=== PATIENT | male | born 1955 | race Caucasian/White ===

== ENCOUNTER → 2020-01-01 09:16 | Outpatient (CLI) | payer OTHER, MEDICARE, SELFPAY ==
--- NOTE | 2020-01-01 09:20 | DI.RAD.S_ITS ---
PROCEDURE: XR FOOT RT MIN 3V INDICATIONS: right foot pain TECHNIQUE: 3 views of the foot were acquired. COMPARISON: None. FINDINGS: Bones: No fractures or dislocations. No suspicious bony lesions. 1st MTP degenerative change. Ossification is lateral to the calcaneocuboid joint likely represent sequelae of remote trauma. Soft tissues: No tibiotalar joint effusion. Achilles tendon appears normal. IMPRESSION: 1st MTP degenerative change. No evidence acute bony abnormality of the right foot If clinical suspicion and/or symptoms persist, further assessment with repeat plain films, or advanced imaging (e.g., CT, MRI, or bone scan) may be helpful for further assessment. Dictated by: Clifford Guzman M.D. on 01/01/2020 at 9:41 Approved by: Clifford Guzman M.D. on 01/01/2020 at 9:42
== END ==
PROVIDERS: Family Provider Family Medicine; Referring Provider Physician Assistant; Visit Provider Physician Assistant
DX: M79.671 Pain in right foot (principal)
CPT/HCPCS: 73630

== ENCOUNTER → 2020-06-27 10:40 | Outpatient (CLI) | payer OTHER, SELFPAY ==
[2020-06-27 12:38] LABS: COVID19 -Nasal RAPID Negative (Negative)
== END ==
PROVIDERS: Family Provider Family Medicine; Visit Provider Surgery
DX: Z20.822 Contact with and (suspected) exposure to COVID-19 (principal)
CPT/HCPCS: 87635; C9803

== ENCOUNTER 2020-06-28 08:08 | Day surgery (SDC) | payer OTHER, SELFPAY ==
[2020-06-28] VITALS (11 sets, daily range): BP systolic 97–147; BP diastolic 47–78; PULSE 63–84; RESP 14–20; TEMP 35.8–36.4; O2SAT 91–97; BMI 31.1
[2020-06-28] MEDS: SODIUM CHLORIDE 0.9% 1,000 ML 200 ML IV (08:41)
--- NOTE | 2020-06-28 09:14 | PM.HP.1 ---
History of Present Illness History of Present Illness Date Patient Seen: 06/28/20 Time Patient Seen: 09:14 Chief complaint: SDC Narrative: This is a 64-year-old man who had a colonoscopy in [address] José, and 1 polyp was found. He denies any new symptoms since then, of any melena, hematochezia involving right mid weight loss. No other personal or family history of colon polyps or colon cancers. This is the is otherwise well, has no new medical problems. ROS: Thirteen system review is otherwise negative other than as mentioned below and in HPI. PE GENERAL: Well groomed and cooperative. Appears stated age. Answers questions promptly and appropriately. Vital signs noted. HENT: Normocephalic, atraumatic. Hearing intact. EYES: Conjunctiva pink, sclera white, no periorbital swelling. CARDIOVASCULAR: Regular rate. No pedal edema. RESPIRATORY: Non-tachypneic, breathing comfortably on room air. GASTROINTESTINAL: Abdomen soft and non-distended GENITALURINARY: No flank tenderness. MUSCULOSKELETAL: Equal tone and mass bilaterally. SKIN: Warm, dry, soft, appropriate color for ethnicity. No other lesions, rashes, or wounds. NEURO: Alert and Oriented X 3. No gross sensory deficits, or cognitive issues. PSYCH: Appropriate affect and mood. Patient History Family & Social History Social History: household members spouse Tobacco & Substance use: Smoking Status Never smoker alcohol intake never Substance Use Type does not use Meds Home Medications and Allergies Home Medications Medication Instructions Recorded Confirmed Type No Known Home Medications 01/01/20 06/28/20 History Allergies Allergy/AdvReac Type Severity Reaction Status Date / Time latex Allergy Mild RASH Verified 06/28/20 08:28 hydrocodone Allergy Unknown Verified 06/28/20 08:28 Exam Vital Signs (past 8 hours): - 06/28/20 08:34 Temperature 97.5 F L Pulse Rate 81 Respiratory Rate 16 Blood Pressure 147/78 H Pulse Oximetry 96 Oxygen Delivery Method Room Air Assessment & Plan Assessment and plan (1) Personal history of colonic polyps: Status: Acute Assessment & Plan narrative: Risks and benefits of surveillance colonoscopy and possible polypectomy were discussed with the patient including risk of bleeding, perforation, need for additional procedures, risks of anesthesia. The patient desires to proceed with the colonoscopy procedure. COVID-19 COVID-19 status: Negative Result date/Date tested (Pos, Neg/Pending): 06/27/20 Time Spent With Patient Time with patient: 15-24 minutes Quality VTE Deep Vein Thrombosis/Pulmonary Embolism Present on Admission: No
--- NOTE | 2020-06-28 09:20 | PM.OP.ENDO ---
Operative Date/Time/Diagnoses Date of procedure: 06/28/20 Time of procedure: 09:20 Pre-op diagnosis: Personal history of colon polyps, due for surveillance colonoscopy Procedure & Clinicians Study performed: Colonoscopy Procedural sedation performed by the endoscopist Same procedure as scheduled: Yes Indications: Personal history of colon polyps, due for surveillance colonoscopy Surgeon: Cherrie Melendez Procedure Notes SCOAP/Timeout: Performed Procedure in detail: The patient was brought to the room and placed in left lateral decubitus position with all bony prominences padded. A time-out was performed and then the patient was given procedural sedation starting with 4 mg of Versed and 100 mcg of fentanyl. A total of 10 mg of Versed and 250 micro g of fentanyl were given for the time procedure. Vitals were monitored throughout the procedure and remained stable. Once adequately sedated, the procedure was begun. A rectal exam was performed revealing no abnormalities. The colonoscope was then introduced to the rectum and advanced to the cecum in the usual fashion. The colon was quite tortuous. Required several maneuvers to reach the cecum safely including pressure on the anterior abdominal wall, and using the scope stiffener. The cecum was identified by the appendiceal orifice, the mucosal tri-fold, and the ileocecal valve. The scope was then retracted while rotating side to side and examining each mucosal fold. Low-grade diverticulosis seen in the sigmoid colon. Otherwise no polyps were found and the colon appeared essentially normal. At the conclusion of the procedure retroflexion was performed and small grade 1-2 internal hemorrhoids without stigmata of bleeding were seen. The scope was then withdrawn from the rectum the procedure was concluded. The patient tolerated the procedure well and was transferred to the PACU in stable condition. Scope withdrawal time: 8 Sedation minutes: 18 Findings: diverticulosis Specimen(s): none sent Complications: none Post-procedure Recommendations: Colonscopy in 10 years Follow up: as needed Disposition: PACU
[2020-06-28] MEDS: MIDAZOLAM 5 MG/5 ML VIAL IV (09:40)
[2020-06-28] MEDS: fentaNYL 250 MCG/5 ML INJ IV (09:40)
[2020-06-28] MEDS: ONDANSETRON 4 MG/2 ML INJ IV (10:30)
--- NOTE | 2020-06-28 11:16 | SUR.PHASEII ---
Addendum entered by Loreto Morrow R.N. 06/28/20 13:09: pt stated his nausea was improved and he was more awake. Stated he was ready to go home. Able to get dressed with SBA. queezease provided to pt and nausea bag. to car in w/c with RN escort in stable condition. d/c instructions provided to pt. Original Note: pt arrived from phase I and was sleepy. Attempted to sit up and pt stated he was nauseated. Verbal order for 4mg of zofran obtained and given to pt. VS checked and stable. 2nd bag of IVF hung. allowed to sleep for about 30 min, pt appears more alert however still is sleepy. encouraged juice to drink, pt declined crackers/brandon rene. VS continue to be stable. will continue to monitor.
== END 2020-06-28 12:10 | disposition home or self-care (01) ==
PROVIDERS: Family Provider Family Medicine; Referring Provider Surgery; Visit Provider Surgery
PROC: 0DJD8ZZ Inspection of Lower Intestinal Tract, Via Natural or Artificial Opening Endoscopic (ICD-10-PCS; CPT 45378; principal; 2020-06-28 09:30)
DX: Z12.11 Encounter for screening for malignant neoplasm of colon (principal); Z86.010 Personal history of colon polyps; K57.30 Diverticulosis of large intestine without perforation or abscess without bleeding; K64.0 First degree hemorrhoids
CPT/HCPCS: 45378; 99152; J2250; J2405; J3010

== ENCOUNTER 2020-08-15 11:15 | Emergency (ER) | payer OTHER, SELFPAY ==
[2020-08-15 11:23] VITALS: BP 161/72; PULSE 75; RESP 16; RESP 18; TEMP 37.3; O2SAT 98; BMI 30.6
[2020-08-15 11:30] VITALS: BP 132/64; PULSE 64; RESP 11; O2SAT 97
--- NOTE | 2020-08-15 11:37 | DI.RAD.S_ITS ---
PROCEDURE: XR CHEST 1V INDICATIONS: chest pain TECHNIQUE: One view of the chest was acquired. COMPARISON: None. FINDINGS: Surgical changes and devices: None. Lungs and pleura: Lungs are clear. No pleural effusions or pneumothorax. Mediastinum: Mediastinal contours appear normal. Heart size is normal. Bones and chest wall: No suspicious bony lesions. Overlying soft tissues appear unremarkable. IMPRESSION: No acute disease. Dictated by: Asif Carolina M.D. on 08/15/2020 at 12:06 Approved by: Asif Carolina M.D. on 08/15/2020 at 12:11
--- NOTE | 2020-08-15 11:43 | ED_ITS ---
HPI - Chest Pain General Chief Complaint: Chest Pain Stated Complaint: chest pain over weekend, currently not present Time Seen by Provider: 08/15/20 11:25 Source: patient Mode of arrival: Ambulatory Limitations: no limitations History of Present Illness HPI narrative: Otherwise healthy 64-year-old gentleman on no medications with no prior history of chest pain or cardiac issues presents with 4 days of intermittent chest pain. It started on Saturday with some tightness in his central chest as he was at [employer] picking up some bricks. He had another episode on Saturday morning again central tightness pain radiating up to both shoulders as he was moving those bricks around a little bit. Saturday there was another episode was not associated with significant heavy lifting and was described as central chest tightness. Saturday 2 similar episodes and again a brief episode of tightness this morning. All episodes resolved spontaneously and he has been taking ibuprofen with each of these to help alleviate pain. He describes no dyspnea or diaphoresis. No abdominal pain dysuria, vomiting, diarrhea. He has had no recent fevers. Related Data Home Medications Medication Instructions Recorded Confirmed No Known Home Medications 01/01/20 08/15/20 Allergies Allergy/AdvReac Type Severity Reaction Status Date / Time latex Allergy Mild RASH Verified 06/28/20 08:28 hydrocodone Allergy Unknown Verified 06/28/20 08:28 Review of Systems Review of Systems Narrative: Remainder of complete review of systems is otherwise unremarkable except for that included in the HPI. Patient History Medical History Personal history of colonic polyps Social History household members: spouse Smoking Status: Never smoker alcohol intake: never Smoking Status: Never smoker Substance Use Type: does not use Exam Narrative Exam Narrative: General: Healthy appearing, in no acute distress. Able to give a complete and coherent history. Well-nourished well-developed HEENT: Moist mucous membranes, normal sclera with reactive pupils, Neck: No JVD, supple Respiratory: Lungs are clear to auscultation, no wheezing no rales no rhonchi. Full and symmetrical air movement Cardiac: Regular rate and rhythm, 3/6 systolic ejection murmur without bruit Abdomen: Soft, nontender, good bowel tones, no flank pain Skin: Warm and dry, no rashes Neurologic: Grossly neurologically intact with no obvious asymmetries or abnormalities Extremities: No trauma, well perfused Psych: Cooperative, appropriate insight and affect Initial Vital Signs Initial Vital Signs: Vital Signs Temperature 99.1 F 08/15/20 11:23 Pulse Rate 75 08/15/20 11:23 Respiratory Rate 18 08/15/20 11:23 Blood Pressure 161/72 H 08/15/20 11:23 Pulse Oximetry 98 08/15/20 11:23 Course Orders Ordered: ED Orders 08/15/20 11:18 EKG-12 Lead Routine 08/15/20 11:34 Complete Blood Count AUTO DIFF Stat Comprehensive Metabolic Panel Stat Lipase Stat Partial Thromboplastin Time Stat Prothrombin Time INR Stat Troponin & CK Cardiac Panel Stat 08/15/20 11:37 XR chest 1V Stat 08/15/20 12:36 COVID19 -Nasal swab/Pre-Proc Stat 08/15/20 12:54 EKG-12 Lead Stat Discontinued Medications Aspirin (Aspirin 81 Mg Chew Tab) 324 mg PO NOW ONE Stop: 08/15/20 11:47 Last Admin: 08/15/20 11:51 Dose: 324 mg Documented by: DEANAONER Heparin Sodium (Porcine) (Heparin 5,000 Unit/Ml Vial) 5,000 unit IV NOW ONE Stop: 08/15/20 12:36 Last Admin: 08/15/20 12:44 Dose: 5,000 unit Documented by: BTONER Heparin Sodium/Dextrose (Heparin Drip) 25,000 unit in 500 mls @ 20 mls/hr IV CONT NAMAN; Protocol Last Admin: 08/15/20 12:45 Dose: 1,000 units/hr, 20 mls/hr Documented by: BTONER Vital Signs Vital signs: Vital Signs - 8 hr 08/15/20 11:23 08/15/20 11:30 08/15/20 12:00 Temperature 99.1 F Pulse Rate 75 64 61 Respiratory Rate 16 11 L 11 L Blood Pressure 161/72 H 132/64 144/64 H Pulse Oximetry 98 97 96 08/15/20 12:30 08/15/20 13:00 Temperature Pulse Rate 62 73 Respiratory Rate 14 15 Blood Pressure 129/61 148/71 H Pulse Oximetry 96 98 MDM - Chest Pain Medical Records Data Attestation: I reviewed the patient's medical records. Lab Data Attestation: I reviewed the patient's lab results. Result diagrams: 08/15/20 11:34 08/15/20 11:34 Labs: Lab Results 08/15/20 08/15/20 08/15/20 Range/Units 11:34 11:34 11:34 WBC 8.6 (4.5-11.0) X10^3/uL RBC 4.72 (4.5-5.9) X10^6/uL Hgb 14.5 (13.5-17.5) g/dL Hct 42.9 (41-53) % MCV 90.9 (80-100) fL MCH 30.7 (26-34) PG MCHC 33.8 (30-36) % RDW 13.6 (11.6-14.8) % Plt Count 232 (150-400) X10^3/uL Neut % (Auto) 67.3 (50-75) % Lymph % (Auto) 18.8 L (25-40) % [place] % (Auto) 10.7 (3-14) % Eos % (Auto) 2.1 (2-4) % Baso % (Auto) 1.1 (0-2) % Neut # (Auto) 5800 (4804-3879) /uL Lymph # (Auto) 1600 (7667-4443) /uL [place] # (Auto) 900 (0-900) /uL Eos # (Auto) 200 (0-450) /uL Baso # (Auto) 100 (0-100) /uL PT 13.5 H (10.1-12.7) SECONDS INR 1.2 (0.9-1.3) APTT 35 (26.4-36.2) SECONDS Sodium 138 (137-145) mmol/L Potassium 4.1 (3.4-5.1) mmol/L Chloride 108 H (98-107) mmol/L Carbon Dioxide 24 (22-32) mmol/L BUN 17 (9-20) mg/dL Creatinine 0.85 (0.66-1.25) mg/dL Estimated GFR > 60.0 (>60) mL/min BUN/Creatinine Ratio 20.0 (6-22) Glucose 114 H (80-110) mg/dL Calcium 9.4 (8.4-10.2) mg/dL Total Bilirubin 0.3 (0.2-1.3) mg/dL AST 65 H (17-59) IU/L ALT 34 (<50) IU/L Alkaline Phosphatase 91 (38-126) U/L Total Creatine Kinase 422 H (55-170) U/L CK-MB (CK-2) 11.60 H (<2.37) ng/mL CK-MB (CK-2) Rel Index 2.7 (1.5-5.0) % Troponin I 3.230 H* (0.01-0.034) ng/mL Total Protein 7.5 (6.3-8.2) g/dL Albumin 4.3 (3.5-5.0) g/dL Globulin 3.2 (1.7-4.1) g/dL Albumin/Globulin Ratio 1.3 (1.0-2.8) Lipase 62 (23-300) U/L SARS-CoV-2 (PCR) (Negative) 08/15/20 Range/Units 12:36 WBC (4.5-11.0) X10^3/uL RBC (4.5-5.9) X10^6/uL Hgb (13.5-17.5) g/dL Hct (41-53) % MCV (80-100) fL MCH (26-34) PG MCHC (30-36) % RDW (11.6-14.8) % Plt Count (150-400) X10^3/uL Neut % (Auto) (50-75) % Lymph % (Auto) (25-40) % [place] % (Auto) (3-14) % Eos % (Auto) (2-4) % Baso % (Auto) (0-2) % Neut # (Auto) (5361-2478) /uL Lymph # (Auto) (8035-4637) /uL [place] # (Auto) (0-900) /uL Eos # (Auto) (0-450) /uL Baso # (Auto) (0-100) /uL PT (10.1-12.7) SECONDS INR (0.9-1.3) APTT (26.4-36.2) SECONDS Sodium (137-145) mmol/L Potassium (3.4-5.1) mmol/L Chloride (98-107) mmol/L Carbon Dioxide (22-32) mmol/L BUN (9-20) mg/dL Creatinine (0.66-1.25) mg/dL Estimated GFR (>60) mL/min BUN/Creatinine Ratio (6-22) Glucose (80-110) mg/dL Calcium (8.4-10.2) mg/dL Total Bilirubin (0.2-1.3) mg/dL AST (17-59) IU/L ALT (<50) IU/L Alkaline Phosphatase (38-126) U/L Total Creatine Kinase (55-170) U/L CK-MB (CK-2) (<2.37) ng/mL CK-MB (CK-2) Rel Index (1.5-5.0) % Troponin I (0.01-0.034) ng/mL Total Protein (6.3-8.2) g/dL Albumin (3.5-5.0) g/dL Globulin (1.7-4.1) g/dL Albumin/Globulin Ratio (1.0-2.8) Lipase (23-300) U/L SARS-CoV-2 (PCR) Negative (Negative) Imaging Data Chest x-ray: Radiologist's Impression: FINDINGS: Surgical changes and devices: None. Lungs and pleura: Lungs are clear. No pleural effusions or pneumothorax. Mediastinum: Mediastinal contours appear normal. Heart size is normal. Bones and chest wall: No suspicious bony lesions. Overlying soft tissues appear unremarkable. IMPRESSION: No acute disease. Dictated by: Asif Carolina M.D. on 08/15/2020 at 12:06 ECG Data Attestation: I personally reviewed and interpreted this ECG as follows: Interpretation: Sinus rhythm at a rate of 65 T-wave abnormality anteriorly. Slight ST elevation in V2, not contiguous, not meeting STEMI criteria repeat 1252 Sinus rhythm at a rate of 62 Continue all anterior T-wave changes without significant progression from initial EKG MDM Narrative Medical decision making narrative: 64-year-old gentleman on no medications with no significant medical history presents with 4 days of intermittent chest pain ST T wave abnormalities on EKG not meeting full criteria for STEMI with positive troponin at 3.23. Chest x-ray is unremarkable. Patient has been pain-free since arrival in the emergency department. He did receive aspirin and is started on a heparin drip. 1230 care is reviewed with Dr. Melody, coal trimmer machine operator. He agrees with starting heparin transfer to [facility] and will contact partners had at [facility] to arrange for coronary catheterization. 1pm Dr Quiñones, coal trimmer machine operator, would like patient to come directly over and go to the medical laboratory technical officer prior to up to the ICU. Care is also reviewed with the hospitalist, Dr. Rendon. Urgent ALS transfer is initiated Patient is stable at time of transfer Critical Care Time Critical Care Time Critical Care Time: Yes Total Critical Care Time: 32 Attestation: Critical care time is separate from other billable procedures. This critical care time includes consultation with family and other consulting doctors, review of records, and interpretation of data from labs, EKGs and imaging as well as managements of acute myocardial infarction Discharge Plan Departure Patient Disposition: er [facility] Clinical Impression: Acute non-ST elevation myocardial infarction (NSTEMI) Prescriptions: No Action No Known Home Medications RF: 0
[2020-08-15 11:45] LABS: Add Manual Diff / Slide Review NO; Basophils Absolute Auto 100 /uL (0-100); Basophils Percent Auto 1.1 % (0-2); Eosinophils Absolute Auto 200 /uL (0-450); Eosinophils Percent Auto 2.1 % (2-4); Hematocrit 42.9 % (41-53); Hemoglobin 14.5 g/dL (13.5-17.5); Lymphocytes Absolute Auto 1600 /uL (1100-4500); Lymphocytes Percent Auto 18.8 % (25-40); Mean Corpuscular HGB Conc 33.8 % (30-36); Mean Corpuscular Hemoglobin 30.7 PG (26-34); Mean Corpuscular Volume 90.9 fL (80-100); Monocytes Absolute Auto 900 /uL (0-900); Monocytes Percent Auto 10.7 % (3-14); Neutrophils Absolute Auto 5800 /uL (1500-7000); Neutrophils Percent Auto 67.3 % (50-75); Platelet Count 232 X10^3/uL (150-400); Red Blood Cell Count 4.72 X10^6/uL (4.5-5.9); Red Cell Distribution Width 13.6 % (11.6-14.8); White Blood Cell Count 8.6 X10^3/uL (4.5-11.0)
[2020-08-15 11:47] LABS: INR 1.2 (0.9-1.3); Prothrombin Time 13.5 SECONDS (10.1-12.7)
[2020-08-15 11:50] LABS: Alanine Aminotransferase 34 IU/L (<50); Albumin 4.3 g/dL (3.5-5.0); Albumin Globulin Ratio 1.3 (1.0-2.8); Alkaline Phosphatase 91 U/L (38-126); Aspartate Aminotransferase 65 IU/L (17-59); Bilirubin Total 0.3 mg/dL (0.2-1.3); Blood Urea Nitrogen 17 mg/dL (9-20); Calcium 9.4 mg/dL (8.4-10.2); Carbon Dioxide 24 mmol/L (22-32); Chloride 108 mmol/L (98-107); Creatine Kinase 422 U/L (55-170); Estimated Glomerular Filt Rate > 60.0 mL/min (>60); Globulin 3.2 g/dL (1.7-4.1); Glucose 114 mg/dL (80-110); HEMOLYSIS < 15 (0-50); Lipase 62 U/L (23-300); PTT Partial Thromboplastin Tim 35 SECONDS (26.4-36.2); Potassium 4.1 mmol/L (3.4-5.1); Sodium 138 mmol/L (137-145); Total Protein 7.5 g/dL (6.3-8.2)
[2020-08-15] MEDS: ASPIRIN 81 MG CHEW TAB 324 MG PO (11:51)
[2020-08-15 12:00] VITALS: BP 144/64; PULSE 61; RESP 11; O2SAT 96
[2020-08-15 12:07] LABS: CKMB % Relative Index 2.7 % (1.5-5.0)
[2020-08-15 12:30] VITALS: BP 129/61; PULSE 62; RESP 14; O2SAT 96
[2020-08-15] MEDS: HEPARIN 5,000 UNIT/ML VIAL 5000 UNIT IV (12:44)
[2020-08-15] MEDS: HEPARIN DRIP 25,000 UNIT/500 ML IV.SOLN 20 UNIT IV (12:45)
[2020-08-15 13:00] VITALS: BP 148/71; PULSE 73; RESP 15; O2SAT 98
[2020-08-15 13:34] LABS: COVID19 -Nasal RAPID Negative (Negative)
--- NOTE | 2020-08-15 14:53 | PC.NURSE ---
report given to RN at [facility].
== END 2020-08-15 13:15 | disposition short-term general hospital (02) ==
PROVIDERS: Emergency Provider Emergency Medicine; Family Provider Family Medicine
DX: I21.4 Non-ST elevation (NSTEMI) myocardial infarction (principal); Z20.822 Contact with and (suspected) exposure to COVID-19
CPT/HCPCS: 36415; 71045; 80053; 82550; 82553; 83690; 84484; 85025; 85610; 85730; 87635; 93005; 93010; 96365; 96375; 99284; 99291; C9803; J1644

== ENCOUNTER 2022-11-07 14:15 | Outpatient (RCR) | payer MEDICARE, OTHER, SELFPAY | END 2022-11-07 16:15 | LOC: CAR 14:15 | PROVIDERS: Family Provider Family Medicine; Referring Provider Thoracic Surgery (Cardiothoracic Vascular Surgery); Visit Provider Thoracic Surgery (Cardiothoracic Vascular Surgery) | DX: Z95.2 Presence of prosthetic heart valve (principal) | CPT/HCPCS: 93798 ==

== ENCOUNTER → 2024-11-18 09:11 | Outpatient (CLI) | payer MEDICARE, OTHER, SELFPAY ==
--- NOTE | 2024-11-18 09:13 | DI.RAD.S_ITS ---
PROCEDURE: XR SHOULDER LT MIN 2V INDICATIONS: LT SHOULDER PAIN TECHNIQUE: Three views of the shoulder were acquired. COMPARISON: None. FINDINGS: Bones: A nondisplaced subtotally united subacute or chronic fracture of the distal clavicle appreciated. Acromioclavicular and glenohumeral joints: Mild degeneration acromioclavicular and glenohumeral joint Soft tissues: No soft tissue swelling, calcification or mass. IMPRESSION: Nondisplaced subtotally united fracture of the distal clavicle . This is likely subacute or chronic. Dictated by: Jone Segal M.D. on 11/19/2024 at 12:14 Approved by: Jone Segal M.D. on 11/19/2024 at 12:15
== END ==
DX: S42.035A Nondisplaced fracture of lateral end of left clavicle, initial encounter for closed fracture (principal); M19.012 Primary osteoarthritis, left shoulder; M25.512 Pain in left shoulder; I50.30 Unspecified diastolic (congestive) heart failure; I25.119 Atherosclerotic heart disease of native coronary artery with unspecified angina pectoris; Q23.81 Bicuspid aortic valve; I25.2 Old myocardial infarction; G89.29 Other chronic pain
CPT/HCPCS: 73030